=== PATIENT | male | born 2005 | race Caucasian/White ===

== ENCOUNTER → 2024-06-15 | Outpatient (CLI) | payer OTHER ==
[2024-06-19 13:07] LABS: PROTEIN S AG TOTAL 147 % normal (70-140); Protein S Antigen, Free 165 % normal (57-171)
[2024-07-13 07:40] LABS: Factor VIII ACTIVITY,CLOTTING 93 %NORMAL (50-180)
[2024-07-13 07:42] LABS: Prt C Activity(Chromogenic) 120 %normal (70-180)
[2024-07-13 07:50] LABS: LUPUS ANTICOAGULANT NOT DETECTED (NOT DETECT)
[2024-07-13 07:51] LABS: APTT LUPUS 36 SEC (<=40)
[2024-07-13 07:52] LABS: DRVVT SCREEN SECONDS 47 SECONDS (<=45)
[2024-07-13 07:54] LABS: ANTITHROMBIN III ACTIVITY 112 % normal (80-135)
== END ==
LOC: M PLALAB 08:08
PROVIDERS: ATTEND Internal Medicine Hematology
DX: D68.8 Other specified coagulation defects (principal)

== ENCOUNTER → 2024-07-02 | Outpatient (CLI) | payer OTHER ==
[2024-07-08 01:47] LABS: ANTI THROMBIN 3 ANTIGEN IMMUNO 107 % normal (80-120); ANTI THROMBIN 3 FUNCT ACTIVITY 114 % normal (80-135)
[2024-07-09 02:22] LABS: PROTEIN C ANTIGEN 85 % normal (70-140)
== END ==
LOC: M LAB 08:02
PROVIDERS: ATTEND Internal Medicine Hematology
DX: D68.8 Other specified coagulation defects (principal)